=== PATIENT | female | born 2000 ===

== ENCOUNTER → 2022-07-21 | Emergency (ER) | payer OTHER ==
[~2022-07-21] VITALS: Ht 149.9 cm; Wt 70.8 kg
[~2022-07-21] MED LIST: AMOX875T2 PO
[2022-07-21 20:19] VITALS: BP 135/85
== END ==
LOC: EDH 19:33
DX: S81.852A Open bite, left lower leg, initial encounter (principal); W54.0XXA Bitten by dog, initial encounter; Y93.89 Activity, other specified; Y92.89 Other specified places as the place of occurrence of the external cause; Y99.8 Other external cause status